=== PATIENT | female | born 1955 | race Caucasian/White ===

== ENCOUNTER 2025-07-11 08:24 | Emergency (ER) | payer MEDICARE, BC, SELFPAY ==
[2025-07-11 08:39] VITALS: BP 133/66; PULSE 112; RESP 20; TEMP 37.3; O2SAT 98
--- NOTE | 2025-07-11 08:57 | ED_ITS ---
HPI - Female Genitourinary General Chief complaint: Urogenital-Female Stated complaint: UTI Time Seen by Provider: 07/11/25 08:50 Source: patient and RN notes reviewed Mode of arrival: ambulatory Limitations: no limitations History of Present Illness HPI Narrative: 69-year-old female patient presents today with nausea, headache, low back pain, suprapubic cramping since last night. Denies dysuria, frequency, or urgency. States she did get up to 3 times last night to urinate, which is abnormal for her. Patient is currently on cefuroxime for sinusitis and is on her last 2 pills. She [place] from [place] of town and just came back from a [place] vacation. Related Data Home Medications ?Medication ?Instructions ?Recorded ?Confirmed ?Last Taken ?Type cholesterol 07/11/25 Unknown History Allergies Allergy/AdvReac Type Severity Reaction Status Date / Time No Known Allergies Allergy Verified 07/11/25 08:38 [facility] Comments At time of signature, I have reviewed and agree with nursing past medical, surgical, social and family history unless otherwise noted. Please see nursing chart for further information. There is no relevant family history pertinent to the presenting complaint Exam Narrative: GENERAL: Well-appearing, well-nourished, and in no acute distress. HEAD: Normocephalic, atraumatic. EYES: EOMI. No redness or drainage. Conjunctivae normal. ENT: Mucous membranes pink and moist. NECK: Normal AROM. CHEST: No respiratory distress. Clear to auscultation. HEART: Regular rate and rhythm. No murmur appreciated. Normal peripheral pulses. ABDOMEN: Soft, nondistended, normal active bowel sounds.+ suprapubic tenderness. -CVAT MUSCULOSKELETAL: Muscular tenderness of the lumbar spine EXTREMITIES: Normal range of motion. No edema. SKIN: Warm, dry, no rash. Capillary refill normal. Normal skin turgor. NEURO: No focal deficits. Alert and oriented x3. Gait steady. PSYCH: Normal affect. No signs of depression or anxiety. Course Course Level of Care: Express Care Visit Vital Signs Vital signs: Vital Signs Temperature 99.2 F 07/11/25 08:39 Pulse Rate 112 H 07/11/25 08:39 Respiratory Rate 20 07/11/25 08:39 Blood Pressure 133/66 07/11/25 08:39 Pulse Oximetry 98 07/11/25 08:39 Oxygen Delivery Room Air 07/11/25 08:39 Temperature 99.2 F 07/11/25 08:39 Pulse Rate 112 H 07/11/25 08:39 Respiratory Rate 20 07/11/25 08:39 Blood Pressure 133/66 07/11/25 08:39 Pulse Oximetry 98 07/11/25 08:39 Oxygen Delivery Room Air 07/11/25 08:39 Reviewed MDM - Female Genitourinary MDM Narrative Medical decision making narrative: 69-year-old female patient presents today with nausea, headache, low back pain, suprapubic cramping since last night. Denies dysuria, frequency, or urgency. States she did get up to 3 times last night to urinate, which is abnormal for her. Patient is currently on cefuroxime for sinusitis and is on her last 2 pills. She is from [place] of town and just came back from a [place] vacation. Upon exam, patient has suprapubic tenderness upon palpation and some lower lumbar muscular tenderness. Her urinalysis is positive for some trace blood 1+ protein. Patient will be treated with Cipro as she is already on a cephalosporin for sinusitis, would like to stay away from beta lactams. Patient agrees with plan. Education given regarding Cipro black box warnings. Dose of Zofran given for patient's nausea. Declines prescription. Vital signs stable. Anticipatory guidance and ED precautions given. Differential Diagnosis Differential diagnosis: Likely urinary tract infection, cystitis and other (Pyelonephritis) Lab Data Attestation: I reviewed the patient's lab results. Lab results narrative: Urinalysis Glucose negative Bilirubin negative Ketones negative Specific gravity 1.025 Blood trace-lysed PH 5.5 Protein 1+ Urobilinogen 0.2 Nitrites negative Leukocyte esterase negative Critical Care Time Critical Care Time Critical Care Time: No Discharge Plan Discharge Clinical Impression: Urinary tract infection Qualifiers: Urinary tract infection type: acute cystitis Hematuria presence: with hematuria Qualified Code(s): N30.01 - Acute cystitis with hematuria Patient Disposition: Home Condition: Stable Instructions: Antibiotic Form, Urinary Tract Infection in Women (DC) Additional Instructions: Your urine shows infection today. Take Cipro as prescribed until gone. Your urine will be sent of for a culture to identify what type of bacteria is causing your infection. If the culture shows that your medication will not get rid of your infection, you will be notified and a new antibiotic will be called in for you. If your symptoms worsen to include fever, sweats, chills, vomiting, severe abdominal or back pain, please go to the ER for further evaluation. Patient Language: Slovenian Prescriptions: New ciprofloxacin HCl 500 mg tablet 500 mg PO Q12H 5 Days Qty: 10 0RF No Action cholesterol Follow-up/Referrals: UNKNOWN,DOCTOR [Primary Care Provider] Time of Disposition: 09:15
[2025-07-11] MEDS: ONDANSETRON HCL ODT 4 MG TABLET 8 MG SUBLINGUAL (09:12)
[2025-07-11 11:52] LABS: EDUAAPPEAR Clear; EDUABILI Negative (Negative); EDUABLOOD Trace (Negative); EDUACOLOR1 Dark; EDUAGLUCOSE Negative (Negative); EDUAKETONE Negative (Negative); EDUALEUKO Negative (Negative); EDUANITRATE Negative (Negative); EDUAPH 5.5; EDUAPROTEIN 1+ (Negative); EDUASPGRAVITY 1.025; EDUAUROBILI 0.2
== END 2025-07-11 09:26 | disposition home or self-care (01) ==
PROVIDERS: Emergency Provider Nurse Practitioner
DX: N30.01 Acute cystitis with hematuria (principal); E78.00 Pure hypercholesterolemia, unspecified
CPT/HCPCS: 81003; 87086; 99203; A9270; G0463